=== PATIENT | female | born 1935 | race Caucasian/White ===

== ENCOUNTER 2018-09-25 10:30 | Emergency (ER) | payer MEDICARE, OTHER ==
[~2018-09-25] VITALS: Ht 154.9 cm; Wt 64.4 kg
[~2018-09-25 10:30] MED LIST: ALBU90OI6 INH; ALBU90OI61 INH; AMLO10 PO; AMLO5 PO; ASCO500 PO; ASPI81CH PO; ASPI81EC PO; CHOL10002; DHA; DIAZ2 PO; FERR325 PO; FOLI1 PO; FUROSEMIDE; GUAI600T33 PO; HYDCHL25 PO; HYDCHL50 PO; Hydrochlorothia25 MG PO; IRON160 M1 PO; Keflex500 MG PO; LISI20 PO; MECL25 PO; METO50 PO; MULVITMIND PO; MULVITMINE PO; Norvasc2.5 MG PO; OLME20 PO; OMEP20ER; OMEP20ER PO; PANT40 PO; POTA8 PO; PRENATAL; PROAIR RESPICL90 MCG IH; SIMV10 PO; TORS10 PO; Zofran4 MG PO
[2018-09-25 11:07] LABS: Source, Urine Clean Catch
[2018-09-25 11:09] LABS: BASOPHILS ABSOLUTE AUTO 0.01 K/mm3 (0.00-0.23); BASOPHILS PERCENT AUTO 0 % (0-2); EOSINOPHILS ABSOLUTE AUTO 0.12 K/mm3 (0.00-0.68); EOSINOPHILS PERCENT AUTO 1 % (0-6); Hematocrit 39.3 % (33.0-51.0); Hemoglobin 12.1 g/dL (11.5-16.0); IMMATURE GRAN ABSOLUTE AUTO 0.04 K/mm3 (0.00-0.10); IMMATURE GRAN PERCENT AUTO 0 % (0-1); LYMPHOCYTES ABSOLUTE AUTO 0.87 K/mm3 (0.84-5.20); LYMPHOCYTES PERCENT AUTO 8 % (21-46); MONOCYTES PERCENT AUTO 4 % (4-13); Mean Corpuscular HGB 28.9 pg (26.0-34.0); Mean Corpuscular HGB Conc 30.8 g/dL (31.5-36.5); Mean Corpuscular Volume 94 fL (80-100); Mean Platelet Volume 11.2 fL (9.1-12.4); NEUTROPHILS ABSOLUTE AUTO 9.57 K/mm3 (1.96-9.15); NEUTROPHILS PERCENT AUTO 87 % (41-73); Platelet Count 206 K/mm3 (150-400); RDW Coefficient Variation 13.2 % (11.7-14.2); RDW Standard Deviation 45.3 fL (35.1-46.3); Red Blood Cell Count 4.19 M/mm3 (3.80-5.20); White Blood Cell Count 11.01 K/mm3 (4.00-11.30)
[2018-09-25 11:16] LABS: Bilirubin, Urine Neg (Neg); Blood, Urine 2+ (Neg); Glucose Qualitative, Urine Neg (Neg); Ketones, Urine 1+ (Neg); Leukocyte Esterase, Urine 2+ (Neg); Nitrite, Urine Neg (Neg); Protein, Urine 2+ (Neg); Urobilinogen, Urine NORM (Normal)
[2018-09-25 11:44] LABS: Albumin, Blood 3.5 g/dL (3.4-5.0); Albumin/Globulin Ratio 1.1 (0.8-1.8); Bilirubin, Total 0.8 mg/dL (0.1-1.0); Bun/Creatinine Ratio 19.3 (12.0-20.0); Calcium, Blood 7.4 mg/dL (8.5-10.1); Creatinine, Blood 1.35 mg/dL (0.40-1.00); Globulin, Blood 3.3 g/dL (2.2-4.0); Potassium, Blood 4.1 mmol/L (3.5-5.5); Total Protein, Blood 6.8 g/dL (6.4-8.2)
[2018-09-25 11:45] LABS: Appearance, Urine Hazy (Clear); Bacteria Rare /hpf; Color, Urine Yellow (P-Yellow); Mucus Light (0-Heavy); Red Blood Cells, Urine 0-2 /hpf (0-2); Squamous Epithelial Cells Few /hpf (Few)
== END 2018-09-25 13:58 | disposition home or self-care (01) ==
LOC: ER 10:30
PROVIDERS: Emergency Medicine
DX: R19.7 Diarrhea, unspecified (principal); Z88.8 Allergy status to other drugs, medicaments and biological substances; Z88.5 Allergy status to narcotic agent; Z79.899 Other long term (current) drug therapy; I10 Essential (primary) hypertension; K21.9 Gastro-esophageal reflux disease without esophagitis
CPT/HCPCS: 36415; 80053; 81001; 83690; 85025; 87086; 96360; 96361; 99284-25; J7120

== ENCOUNTER 2022-07-04 12:26 | Emergency (ER) | payer MEDICARE, OTHER ==
[~2022-07-04] VITALS: Ht 157.5 cm; Wt 61.2 kg
[2022-07-04] MEDS ORDERED: OCEAN104 ML (14:10)
== END 2022-07-04 14:30 | disposition home or self-care (01) ==
LOC: ER 12:26
DX: R04.0 Epistaxis (principal); I10 Essential (primary) hypertension; K21.9 Gastro-esophageal reflux disease without esophagitis; Z95.2 Presence of prosthetic heart valve; Z95.1 Presence of aortocoronary bypass graft; Z79.01 Long term (current) use of anticoagulants; Z79.899 Other long term (current) drug therapy; Z88.8 Allergy status to other drugs, medicaments and biological substances; Z88.5 Allergy status to narcotic agent
CPT/HCPCS: A9270

== ENCOUNTER 2022-08-23 09:04 | Inpatient (IN) | payer MEDICARE, OTHER ==
[~2022-08-23] VITALS: Ht 157.5 cm; Wt 67.4 kg
[~2022-08-23 09:04] MED LIST changes: +OCEAN104 ML
[2022-08-23 10:20] LABS: BASOPHILS ABSOLUTE AUTO 0.02 K/mm3 (0.00-0.23); BASOPHILS PERCENT AUTO 0 % (0-2); EOSINOPHILS ABSOLUTE AUTO 0.01 K/mm3 (0.00-0.68); EOSINOPHILS PERCENT AUTO 0 % (0-6); Hematocrit 46.4 % (33.0-51.0); Hemoglobin 15.4 g/dL (11.5-16.0); IMMATURE GRAN ABSOLUTE AUTO 0.07 K/mm3 (0.00-0.10); IMMATURE GRAN PERCENT AUTO 1 % (0-1); LYMPHOCYTES ABSOLUTE AUTO 0.89 K/mm3 (0.84-5.20); LYMPHOCYTES PERCENT AUTO 6 % (21-46); MONOCYTES ABSOLUTE AUTO 1.24 K/mm3 (0.16-1.47); MONOCYTES PERCENT AUTO 9 % (4-13); Mean Corpuscular HGB 28.6 pg (26.0-34.0); Mean Corpuscular HGB Conc 33.2 g/dL (31.5-36.5); Mean Corpuscular Volume 86 fL (80-100); Mean Platelet Volume 12.3 fL (9.1-12.4); NEUTROPHILS ABSOLUTE AUTO 11.82 K/mm3 (1.96-9.15); NEUTROPHILS PERCENT AUTO 84 % (41-73); NRBC ABSOLUTE 0.04 K/mm3 (0.00-0.02); NRBC Auto 0.3 /100 WBC (0.0-0.2); Platelet Count 140 K/mm3 (150-400); RDW Coefficient Variation 14.9 % (11.7-14.2); RDW Standard Deviation 46.5 fL (35.1-46.3); Red Blood Cell Count 5.38 M/mm3 (3.80-5.20); White Blood Cell Count 14.05 K/mm3 (4.00-11.30)
[2022-08-23 10:36] LABS: Bun/Creatinine Ratio 28.9 (12.0-20.0); Calcium, Blood 8.5 mg/dL (8.5-10.1); Creatinine, Blood 2.39 mg/dL (0.40-1.00); Magnesium, Blood 2.8 mg/dL (1.6-2.4); Potassium, Blood 5.5 mmol/L (3.5-5.5)
[2022-08-23] MEDS ORDERED: AMLO5 PO (12:25)
[2022-08-23] MEDS ORDERED: ELIQUIS2.5 MG PO (12:26)
[2022-08-23] MEDS ORDERED: CATAPRES-TTS 21 EAC1 TOP (12:27)
[2022-08-23] MEDS ORDERED: OLME20 PO (12:27)
[2022-08-23] MEDS ORDERED: KAPSPARGO SPRIN25 MG PO (12:28)
[2022-08-23] MEDS ORDERED: HYDCHL25 PO (12:28)
--- NOTE | 2022-08-23 13:57 | NUR ---
PT ADMITTED TO ICU 5 FROM ER. PT IS DROWSY BUT ORIENTED X4. DENIES CP OR PRESSURE, DENIES N/V AND SOB AT THE MOMENT. SKIN IS COOL T/O. FINGERS ARE DUSKY AND COLD. FEET ARE EVEN MORE DUSKY AND COLD, CAP REFILL 4 SEC. PT STATES SHE FEELS COLD AND DOES NOT USUALLY NOTICE HER HANDS OR FEET BEING ABNORMALLY COLD. AFIB 60'S -70'S ON THE MONITOR WITH STABLE BP. ATTEMPTED TO CALL SON PER PT REQUEST TO UPDATE, NO ANSWER.
[2022-08-23] MEDS ORDERED: FOLI1 PO (17:02)
[2022-08-23] MEDS ORDERED: THERA-D2000 UNIT PO (17:04)
[2022-08-23] MEDS ORDERED: ASCO500 PO (17:04)
[2022-08-23] MEDS ORDERED: B-12500 MC2 PO (17:05)
[2022-08-23] MEDS ORDERED: Ventolin/Prove6.7 GM INH (17:07)
--- NOTE | 2022-08-23 17:38 | NUR ---
PT RESTING IN BED. DENIES CP OR PRESSURE. GAVE DOSE OF LASIX PER DR. LOVE. DR. LOVE LOOKED IN TO POSSIBLE ALLERGY TO LASIX AND DETERMINED IT WAS OK TO GIVE DOSE. PT STILL COLD T/O WITH DUSKY FINGERS AND EVEN DUSKIER TOES. AFIB ON THE MONITOR WITH CONTROLLED RATE AND BP STABLE SINCE ADMIT. METOPROLOL TO BE STARTED TONIGHT. TROPONIN TRENDING DOWN. POWERGLIDE ATTEMPTED BUT PT HAS POOR VEINS AND WAS UNSUCCESSFUL. PT DOES HAVE ONE 20G TO LAC. SPOKE WITH SON PER PT REQUEST AND UPDATED. NO SIGN OF DISTRESS AT THE MOMENT.
--- NOTE | 2022-08-23 19:00 | NUR ---
ASSUMED CARE ASSUMED CARE OF PATIENT. RESTING QUIETLY WHEN UNDISTURBED. ROUSES EASILY TO VERBAL STIMULI. MONITOR SHOWS AFIB, RATE 70s. BP STABLE. RA SATS STABLE. RESPIRATIONS EVEN AND UNLABORED. SEE SHIFT ASSESSMENT FOR FULL ASSESSMENT.
[2022-08-24 03:24] LABS: BASOPHILS ABSOLUTE AUTO 0.02 K/mm3 (0.00-0.23); BASOPHILS PERCENT AUTO 0 % (0-2); EOSINOPHILS ABSOLUTE AUTO 0.03 K/mm3 (0.00-0.68); EOSINOPHILS PERCENT AUTO 0 % (0-6); Hematocrit 44.8 % (33.0-51.0); Hemoglobin 14.9 g/dL (11.5-16.0); IMMATURE GRAN ABSOLUTE AUTO 0.07 K/mm3 (0.00-0.10); IMMATURE GRAN PERCENT AUTO 1 % (0-1); LYMPHOCYTES ABSOLUTE AUTO 1.39 K/mm3 (0.84-5.20); LYMPHOCYTES PERCENT AUTO 9 % (21-46); MONOCYTES ABSOLUTE AUTO 1.43 K/mm3 (0.16-1.47); MONOCYTES PERCENT AUTO 9 % (4-13); Mean Corpuscular HGB 28.7 pg (26.0-34.0); Mean Corpuscular HGB Conc 33.3 g/dL (31.5-36.5); Mean Corpuscular Volume 86 fL (80-100); Mean Platelet Volume 12.3 fL (9.1-12.4); NEUTROPHILS ABSOLUTE AUTO 12.56 K/mm3 (1.96-9.15); NEUTROPHILS PERCENT AUTO 81 % (41-73); NRBC ABSOLUTE 0.06 K/mm3 (0.00-0.02); NRBC Auto 0.4 /100 WBC (0.0-0.2); Platelet Count 111 K/mm3 (150-400); RDW Coefficient Variation 14.8 % (11.7-14.2); RDW Standard Deviation 46.5 fL (35.1-46.3); Red Blood Cell Count 5.19 M/mm3 (3.80-5.20)
[2022-08-24 03:37] LABS: Albumin, Blood 2.7 g/dL (3.4-5.0); Albumin/Globulin Ratio 1.1 (0.8-1.8); Bun/Creatinine Ratio 30.7 (12.0-20.0); Creatinine, Blood 2.41 mg/dL (0.40-1.00); Globulin, Blood 2.5 g/dL (2.2-4.0); Magnesium, Blood 2.7 mg/dL (1.6-2.4); Potassium, Blood 5.2 mmol/L (3.5-5.5); Total Protein, Blood 5.2 g/dL (6.4-8.2)
--- NOTE | 2022-08-24 06:30 | NUR ---
SHIFT SUMMARY NO ACUTE CHANGES DURING NOC. PT SLEPT WHEN UNDISTURBED. DENIED PAIN/DISCOMFORT. UP TO BSC WITH STANDBY ASSIST. VOIDED WITHOUT DIFFICULTY. VSS T/O NOC. MONITOR SHOWED AFIB WITH OCCASIONAL NSR, RATE 70s. RA SATS STABLE.
--- NOTE | 2022-08-24 12:40 | NUR ---
PT A/O X4. DENIES PAIN, N/V, AND SOB. DR. COUCH BY TO SEE PT THIS AM AND RECOMMENDS MEDICAL MANAGEMENT. PT HAS BEEN UP TO BSC WITH MINIMAL 1 PERSON ASSIST. SAT UP IN CHAIR FOR MEALS. UNEVENTFUL MORNING. STATUS CHANGED TO MEDICAL WITH TELE. TRANSFERING TO ROOM 329, REPORT GIVEN TO TIN BAEZ.
--- NOTE | 2022-08-24 19:24 | NUR ---
SHIFT SUMMARY PT A&OX1-2 AND PLEASANT. PT IS COMPULSIVE SO BED ALARM IN ON. PT CONTINENT/INCONTINENT. BLOOD PRESSURE WAS SOFT THIS AFTERNOON, 90/56 AND HR PER CUSTOMER ADVISOR SPECIALIST WAS 115. DR LOVE NOTIFIED. ORDERS GIVEN. PT'S BP CONTINUED TO BE SOFT WHEN RECHECKED AND HR IN LOW 100'S. DR LOVE NOTIFIED AGAIN OF SOFT BP'S. METOPROLOL IV ORDERED PRN FOR HR GREATER THAN 120. REPORT GIVEN TO YIELD ANALYST NURSE.
--- NOTE | 2022-08-25 04:34 | NUR ---
SHIFT SUMMARY 87 YR F ADMITTED ON 08/23/22 FOR ABNORMAL HEART RYTHMS. TRANSFERED FROM ICU TO MEDICAL FLOOR YESTERDAY, 08/24/22. FULL CODE. PT IS SPONTANEOUS AND CONTINUOUSLY TRIES TO GET OUT OF BED WITHOUT ASSISTANCE OR USING THE CALL LIGHT. SHE APPEARS TO BE CONFUSED AND SAYS RANDOM THINGS. BP'S HAVE BEEN SOFT AND HOSPITALIST WAS CONTACTED TWICE, BOTH TIMES ORDERING A BOLUS OF NS. HR IS FLUCTUATING BETWEEN 70'S, 80'S, AND UP TO 150'S VERY BRIEFLY. PT IS AWAKE AND ALERT BUT ONLY ORIENTED TO SELF. SHE IS A VERY PLEASANT LADY BUT SHE DOES NOT FOLLOW DIRECTIONS ALTHOUGH SHE IS VERY BRIEFLY REDIRECTABLE.
--- NOTE | 2022-08-25 14:58 | NUR ---
CONACTED DR LOVE REGARDING BP 71/56, PT ASYMPTOMATIC. INFORMED MD TO LOOK AT CHART AND ENTER ORDERS. WILL CONTINUE TO MONITOR
[2022-08-25 16:30] LABS: Bun/Creatinine Ratio 34.2 (12.0-20.0); Creatinine, Blood 2.25 mg/dL (0.40-1.00); Potassium, Blood 4.2 mmol/L (3.5-5.5)
--- NOTE | 2022-08-25 17:37 | NUR ---
SHIFT SUMMARY NO ACUTE CHANGES DURING SHIFT. PT TRANSFERED BACK TO SCU FOR CLOSER OBSERVATION. PT ALERT TO SELF, CONTINUED CONFUSION. PT REMAINS ON RA, SBA, IMPULSIVE, BED/CHAIR ALARM ON. PT HYPOTENSIVE, 250 ML BOLUS GIVEN, SBP UP TO 86. WILL CONTINUE TO MONITOR. CALL LIGHT WITHIN REACH.
[2022-08-25 20:04] LABS: BASOPHILS ABSOLUTE AUTO 0.02 K/mm3 (0.00-0.23); BASOPHILS PERCENT AUTO 0 % (0-2); EOSINOPHILS PERCENT AUTO 1 % (0-6); Hematocrit 43.9 % (33.0-51.0); Hemoglobin 14.4 g/dL (11.5-16.0); IMMATURE GRAN ABSOLUTE AUTO 0.06 K/mm3 (0.00-0.10); IMMATURE GRAN PERCENT AUTO 1 % (0-1); LYMPHOCYTES ABSOLUTE AUTO 1.17 K/mm3 (0.84-5.20); LYMPHOCYTES PERCENT AUTO 9 % (21-46); MONOCYTES ABSOLUTE AUTO 1.08 K/mm3 (0.16-1.47); MONOCYTES PERCENT AUTO 8 % (4-13); Mean Corpuscular HGB 28.4 pg (26.0-34.0); Mean Corpuscular HGB Conc 32.8 g/dL (31.5-36.5); Mean Corpuscular Volume 87 fL (80-100); NEUTROPHILS ABSOLUTE AUTO 10.81 K/mm3 (1.96-9.15); NEUTROPHILS PERCENT AUTO 82 % (41-73); NRBC ABSOLUTE 0.06 K/mm3 (0.00-0.02); NRBC Auto 0.5 /100 WBC (0.0-0.2); Platelet Count 162 K/mm3 (150-400); RDW Coefficient Variation 14.7 % (11.7-14.2); RDW Standard Deviation 46.2 fL (35.1-46.3); Red Blood Cell Count 5.07 M/mm3 (3.80-5.20); White Blood Cell Count 13.24 K/mm3 (4.00-11.30)
[2022-08-25 20:07] LABS: Base Excess Venous -3.9 mmol/L; Bicarbonate Venous 21.8 mmol/L (24.0-30.0); PCO2 Venous 35.6 mmHg (38-42); pH Blood Venous 7.38 (7.34-7.37)
[2022-08-25 20:12] LABS: Source, Urine Straight Cath
[2022-08-25 20:20] LABS: Appearance, Urine Clear (Clear); Bilirubin, Urine Neg (Neg); Blood, Urine Neg (Neg); Color, Urine Yellow (P-Yellow); Glucose Qualitative, Urine Neg (Neg); Ketones, Urine Neg (Neg); Leukocyte Esterase, Urine Neg (Neg); Nitrite, Urine Neg (Neg); Protein, Urine Neg (Neg); Specific Gravity, Urine 1.015 (1.003-1.022); Urobilinogen, Urine NORM (Normal)
[2022-08-25 20:44] LABS: Creatinine, Urine Random 60.3 mg/dL (27.00-270.00)
[2022-08-25 21:00] LABS: U Amphetamine Screen Not Detected; U Barbituate Screen Not Detected; U Benzodiazapine Screen Not Detected; U Buprenorphine Screen Not Detected; U Cannabinoids Screen Not Detected; U Cocaine Screen Not Detected; U Methadone Screen Not Detected; U Methamphetamine Screen Not Detected; U Opiates Screen Not Detected; U Oxycodone Screen Not Detected; U Phencyclidine Screen Not Detected; U Propoxyphene Screen Not Detected
[2022-08-26 05:37] LABS: Bun/Creatinine Ratio 37.1 (12.0-20.0); Calcium, Blood 7.6 mg/dL (8.5-10.1); Creatinine, Blood 2.02 mg/dL (0.40-1.00); Magnesium, Blood 2.3 mg/dL (1.6-2.4)
--- NOTE | 2022-08-26 05:47 | NUR ---
SUMMARY: PT ORIENTED TO SELF AND FAMILY ONLY AND IS IMPULSIVE WHEN AWAKE W/FREQ ATTEMPTS OOB AND CHAIR BY SELF. SON WAS HERE AT BEGINNING OF SHIFT HELPING TO REORIENT AND DIRECT HER. SEROQUEL WAS RECIEVED AND PT AMBULATED W/FWW FROM ESPINAL RECLINER TO BED AND SHE'S BEEN SLEEPING W/O S/S DISTRESS SINCE. UA WAS OBTAINED AND SENT, NO UTI/TOX DETECTED. SHE'S INCONTINENT AT TIMES W/ATTENDS CHANGED PRN. PT REPOSITIONS SELF IN BED AND HAS CAMERA MONITORING IN PROGRESS W/ALARMS ON FOR FALL RISK. SHE'S BEEN AFIB ON TELEMETRY AT 90'S-100'S BPM, NO PRN METOPROLOL REQUIRED. BP'S REMAINS SOFT W/SBP 80'S-100'S BUT SHE'S BEEN ASYMPTOMATIC OF CARDIAC DISTRESS. NO ACUTE CHANGES, VSS/AFEBRILE. WCTM AND REPORT TO DAY RN.
--- NOTE | 2022-08-26 17:54 | NUR ---
SHIFT SUMMARY NO ACUTE CHANGES DURING SHIFT TODAY. PT ALERT TO SELF AND SON, REMAINS CONFUSED. PT REMAINS ON RA, X 1 ASSIST WITH FWW TO BATHROOM. BLOOD PRESSURE REMAINS LOW, MIDODRINE TID STARTED TODAY, SBP UP TO 90 THIS EVENING. WILL CONTINUE TO MONITOR. CALL LIGHT WITHIN REACH.
--- NOTE | 2022-08-27 05:25 | NUR ---
SHIFT SUMMARY PATIENT HAD NO ACUTE CHANGES. ALERT TO SELF AND SON WITH CONFUSION. HX OF SEVERE DEMENTIA. OUT OF BED ATTEMPTS X TWO ACTIVATING BED ALARM. ON CAMERA. SON PRESENT FOR A FEW HOURS FIRST PART OF SHIFT. ONE ASSIST TO BSC. PIV REMAINS INTACT. ON TELEMETRY AFIB W/RVR 100-115. DENIES PAIN, SOB, AND N/V. CALL LIGHT IN REACH. BED IN LOWEST POSITION AND ALARM ACTIVATED. WILL CONTINUE TO MONITOR UNTIL DAY SHIFT NURSE ASSUMES CARE.
--- NOTE | 2022-08-27 08:00 | NUR ---
PT PLEASANT COOP A/O X2, FAMILY AND SELF. DETAILS DIFFICULTY. SON AT BEDSIDE. ABLE TO TELL ME HAS 2 CHILDREN, GAVE ME BOTH NAMES. H/R IRREG, NO MURMUR NOTED. PER TELE STRIP, AFIB AT 107. LUNGS CLEAR, RESP EASY, UNLABORED. ON R.A. EDEMA +2-3 BLE. VOIDS 1 AST BSC. BT X4 LAST BM LAST NITE OR EARLY THIS AM. STATES NOT SURE. BED IN LOW POSITIOIN, CALL LITE IN REACH, BED ALARM ON FOR SAFETY
--- NOTE | 2022-08-27 11:47 | NUR ---
CALLED DR LOVE RE [facility]. MEGHANN D/C. DISCUSSED PARAMETERS ON LASIX. REQ HOLD TODAY DOSE. EXPECTS LIKELY TO D/C
--- NOTE | 2022-08-27 15:43 | NUR ---
MET WITH PT SONMARGA TO ANSWER QUESTIONS ABOUT WHAT COMFORT CARE. PROVIDED EDUATION, ANSWERED ALL QUESTIONS, AND PT SON BECOMES TEARFUL DURING OUR CONVERSATION. HE REPORTS THAT MORE FAMILY WILL BE ARRIVING IN A FEW DAYS AND HE WANTS TO WAIT TO MAKE A FINAL DECISION ABOUT CC AFTER THEY ARRIVE. PROVIDED EMOTIONAL SUPPORT AND ADVISED THAT PALLIATIVE CARE WILL CONTINUE TO FOLLOW UP AND HE IS APPRECIATIVE.
--- NOTE | 2022-08-27 18:58 | NUR ---
PT PLEASANT COOP FORGETFUL ALERT TO FAMILY AND SELF. PT FAMILY CONSIDERING HOSPICE AT DISCHARGE. MIDODRINE AND LASIX GIVEN TODAY. BP HAVE BEEN STABLE. DISCUSSED WITH NO PARAMETERS GIVEN TODAY FOR LASIX. NO NEW CONCERNS NOTED. BED IN LOW POSITION, CALL LITE IN REACH, CALLS APPROP
[2022-08-27 19:43] LABS: Calcium, Blood 8.6 mg/dL (8.5-10.1); Creatinine, Blood 1.81 mg/dL (0.40-1.00); Magnesium, Blood 2.6 mg/dL (1.6-2.4)
--- NOTE | 2022-08-28 05:12 | NUR ---
SHIFT SUMMARY 87 YR F ADMITTED ON 08/23/22 FOR AFIB W/ RVR. DNR. NO ACUTE CHANGES THIS SHIFT. PT IS STILL VERY CONFUSED AND IS NOT ORIENTED TO HER OWN ABILITY OR LACK THEREOF. SHE IS IMPULSIVE TO GET UP WITHOUT ASSISTANCE AND DOESN'T KNOW WHY SHE IS GETTING UP IN THE FIRST PLACE. SHE IS PLEASANT AND LAUGHS AT MOST THINGS SAID TO HER, IF SHE DOES NOT UNDERSTAND WHAT SHE IS BEING TOLD. HER SON WAS AT BEDSIDE AT BEGINNING OF SHIFT AND STATED THAT HE WILL BE BACK TOMORROW.
[2022-08-28 07:35] LABS: Magnesium, Blood 1.7 mg/dL (1.6-2.4)
--- NOTE | 2022-08-28 14:04 | NUR ---
PT RESTING COMF, SON AT THE BEDSIDE. PT IS PENDING DC TO [place] [employer], SON FEELS HIS MOTHER HAS BEEN IMPROVING AND WANTS TO HOLD OFF ON HOSPICE DISCUSSIONS AT THIS TIME. PALLIATIVE CARE WILL CONTINUE TO OFFER SUPPORT NEEDED.
[2022-08-28 17:08] LABS: Bun/Creatinine Ratio 44.4 (12.0-20.0); Calcium, Blood 8.4 mg/dL (8.5-10.1); Creatinine, Blood 1.69 mg/dL (0.40-1.00); Potassium, Blood 3.9 mmol/L (3.5-5.5)
--- NOTE | 2022-08-28 18:01 | NUR ---
PATIENT REFUSED TO TAKE LASIX AND SEROQUEL. PATIENT WAS ORDERED PRN SEROQUEL THIS EVENING After becoming aggitated and trying to get up to leave the room to go home. SON MARGA HERE NOW. PATIENT IS RESTING IN BED, MORE CALM BUT REFUSES TO TAKE ALL MEDICATION, INCLUDING LASIX. MIDODRINE WAS NOT NEEDED BP WAS HIGH.
--- NOTE | 2022-08-28 19:13 | NUR ---
PATIENT HAD A GOOD DAY, UP UNTIL EVENING TIME. DURING THE DAY, PATIENT WAS COOPERATIVE WITH CARE, DISPLAYING SAFE BEHAVIOR. AFTER 4PM, SHE BECAME AGGITATED, ATTEMPTING TO LEAVE HER ROOM TO "GO HOME" WITH AN UNSTEADY GAIT AND LOUD VOICE. PATIENT WOULD NOT REDIRECT WITH VERBAL. BOBBIN HANDLER STAYED WITH PATIENT FOR AT LEAST 30 MINUTES. ORDER OBTAINED FOR PO SEROQUEL, WHICH PATIENT REFUSED. SON MARGA WAS ALSO UNABLE TO CONVINCE PATIENT TO TAKE MEDICATION. PATIENT DECLINED LASIX WELL AT 1800, DUE TO WHAT APPEARED TO BE PARANOIA- "I DON'T WANT TO TAKE ANYTHING THAT YOUR TRYING TO KILL ME WITH". PATIENT DID LAY BACK DOWN IN BED ONCE HER SON MARGA WAS BACK AT BEDSIDE. NO DINNER WAS EATEN. AT THIS TIME, PATIENT IS STILL RESTING IN BED, EYES CLOSED.
--- NOTE | 2022-08-29 04:49 | NUR ---
SHIFT SUMMARY 87 YR F ADMITTED ON 08/23/22 FOR AFIB W/ RVR. DNR. NO ACUTE CHANGES THIS SHIFT. PT TOOK HER EVENING MEDS W/O RESISTANCE AND ALSO TOOK THE MEDS SHE HAD REFUSED EARLIER. SHE SLEPT FOR MOST OF THE SHIFT BUT DID HAVE SEVERAL EPISODES WHERE SHE APPEARED TO BE HAVING A CONVERSATION WITH SOMEONE WHO WAS NOT THERE. SHE DID NOT CALL TO USE THE RESTROOM SHE HAD DONE LAST NIGHT, BUT RATHER HAD EPISODES OF INCONTINENCE. SHE STILL APPEARS TO BE VERY CONFUSED BUT SHE WAS PLEASANT AND COOPERATIVE WITH CARE THIS SHIFT.
[2022-08-29 06:48] LABS: Albumin, Blood 2.5 g/dL (3.4-5.0); Anion Gap 8 mmol/L (6-16); Blood Urea Nitrogen 82 mg/dL (8-24); Bun/Creatinine Ratio 45.6 (12.0-20.0); CO2, Blood 24 mmol/L (21-32); Calcium, Blood 8.8 mg/dL (8.5-10.1); Chloride, Blood 108 mmol/L (98-108); Glomerular Filtration Rate 27 (60-); Glucose, Blood 105 mg/dL (70-99); Magnesium, Blood 2.5 mg/dL (1.6-2.4); Phosphorus, Blood 4.9 mg/dL (2.5-4.9); Sodium, Blood 140 mmol/L (136-145)
--- NOTE | 2022-08-29 17:18 | NUR ---
SHIFT SUMMARY PT AxOx2 WITH FREQUENT CONFUSION OR FORGETFULNESS. PT IS EASILY REDIRECTABLE. PT'S SON IN ROOM MOST OF THE DAY. TELE DC'D. PT HAD SHOWER TODAY. BED ALARM AND CAMERA ON FOR IMPULSIVITY. PT HAS BLE EDEMA AND NON PITTING IN BUE. EXTREMITIES ELEVATED PT TOLERATES. SKIN HAS SCATTERED BRUISING/MINOR ABRASIONS. OTHERWISE, C/D/I. PT UP IN CHAIR FOR MEALS AND PLEASANT AND COOPERATIVE WITH CARE. PT DENIES PAIN THIS SHIFT. PT IS CURRENTLY UP IN CHAIR WITH CALL LIGHT IN REACH. DENIES ANY NEEDS AT THIS TIME.
--- NOTE | 2022-08-30 04:51 | NUR ---
SHIFT SUMMARY ADMITTED FOR AFIB/NSTEMI. PLAN IS FOR PLACEMENT. SHE IS IMPULSIVE, BED ALARM IS SET. SHE IS REDIRECTABLE. 1 ASSIST W/FWW & GB - BRP. CARDIAC DIET. INCONTINENT. MEDS CRUSHED IN APPLESAUCE SHE CHEWS HER MEDS. ON ELIQUIS. [place]. SHE SLEPT THROUGHOUT SHIFT. NO NEW CONCERNS
--- NOTE | 2022-08-31 05:32 | NUR ---
SHIFT SUMMARY: PT IS ALERT AND ORIENTED WITH MINOR CONFUSION. PT IS CALM AND COOPERATIVE WITH CARE. PT IS A ONE PERSON ASSIST TO THE BATHROOM. PT INCONTINENT OVERNIGHT, CHANGED AND CLEANED NEEDED. PT DENIES PAIN, NAUSEA, VOMITING, AND SOB. PT SLEPT MUCH OF THE NIGHT WHEN NOT DISTURBED. NO ACUTE CHANGES OR COMPLICATION. WILL REPORT TO DAY NURSE.
--- NOTE | 2022-08-31 18:32 | NUR ---
EVENING NOTE PT RESTING QUIETLY. SON AT BEDSIDE. SCANT INTAKE FOOD OR FLUID. ATTEMPTED TO HELP HER EAT DINNER. SHE ATE 3 BITES AND DRANK 1/2 MILK. SON IS AWARE THAT SHE FADING. SHE DOESN'T RECOGNIZE HIM SHE CALLS HIM BY HER SONS NAME. VSS. UP TO BATHROOM WITH FWW/GAIT BELT. VOIDED AND INCONTINENT. PULL UP ON. SHE SPENDS MOST OF HER TIME SLEEPING. WHETHER SHE'S IN BED OR SITTING UP INTHE CHAIR. CONTINUE POC.
--- NOTE | 2022-09-01 06:29 | NUR ---
CONFUSED, PLEASANT, ORIENTED TO SELF, INADVERTENTLY HITS CALL LIGHT, AMBULATED ESPINAL WITH FWW AND SBA LAST NIGHT. INCONTINENT OF URINE LAST NIGHT BUT PER REPORT IS INTERMITTENTLY CONTINENT DURING THE DAY. TOLERATED PILLS WHOLE IN APPLESAUCE. VSS ON RA. FORGETFUL. UNEVENTFUL NIGHT. POTENTIAL DC TODAY.
[2022-09-01] MEDS ORDERED: ASPI81CH PO (10:48)
[2022-09-01] MEDS ORDERED: FAMO20 PO (10:54)
[2022-09-01] MEDS ORDERED: FURO20 PO (10:55)
[2022-09-01] MEDS ORDERED: Crestor20 MG PO (10:56)
--- NOTE | 2022-09-01 13:37 | NUR ---
Met with pt and son at bedside at the request of bedside RN. The pt is pleasant. She was notably SOB, so I spoke to son about measures we can provide to help with this. He became tearful, and states he has been trying to "keep her alive until my family comes". He states his and daughter will be arriving tomorrow night. We discussed comfort care, and with some education, son requested starting a modified version of it until family arrives, as long as pt's needs are met. Dr. Beatty gave v/o for comfort care; but we are starting slow, and will continue to re-evaluate for effectiveness of low dose roxanol.
--- NOTE | 2022-09-01 18:21 | NUR ---
SHIFT SUMMARY ALERT, ORIENTED TO SELF, FREQUENTLY CONFUSED AND AGITATED. SOB NOTED, LUNGS CLEAR/DIM BILATERLLY. PT DENIED PAIN T/O SHIFT. NO CP OR HEADACHE. PALLIATIVE CARE STARTED CC/ HOSPICE CONVERSATION, THOUGH PT'S SON MARGA IS WAITING FOR THE REST OF THE FAMILY TO BE HERE FOR THE FINAL DECISION. ROXANOL, ATROPINE DROPS, AND SEROQUEL ORDERED. PT NOTABLY AGITATED DURING THE END OF THE SHIFT, MEDICATED WITH SEROQUEL AND ROXANOL 5MG. UNABLE TO REDIRECT PATIENT T/O SHIFT. PT CURRENTLY SLEEPING WITH SON AT BEDSIDE. CALL LIGHT WITHIN REACH. NO ACUTE CHANGES DURING THIS SHIFT.
--- NOTE | 2022-09-02 04:29 | NUR ---
DISTRIBUTION SPEC SUMMARY NO ACUTE EVENTS THROUGHOUT THE NIGHT. A&OX2. PATIENT DOES NOT COMMUNICATE NEEDS APPROPRIATELY AND REQUIRES INCREASED ROUNDING. VSS. RR EVEN AND UNLABORED ON RA. NO SIGNS OR REPORTINGS OF PAIN THIS SHIFT. BED LOW AND LOCKED. CALL LIGHT WITHIN REACH. THIS RN WILL CONTINUE TO MONITOR. PATIENT APPEARS TO BE RESTING COMFORTABLY.
--- NOTE | 2022-09-02 11:55 | NUR ---
Met pt's son Carlos A in the waiting area on my way to see pt. A asked him how he was, and how he felt thigs were foin? He reponded, "Not great. My mom is restless, she seems tense and SOB". He asked for her to have a dose of roxanol, as he states, "It seems to really work for her choudhary she's like this". I told him I would assess as well as speak to the bedside RN. I reminded him to communicate with bedside RN if he has concerns about the pt, and he states he had forgotten. I did reassess pt, and spoke to bedside RN, who will continue assessing pt and medicate as needed for pain, anxiety or SOB.
--- NOTE | 2022-09-02 16:54 | NUR ---
SHIFT SUMMARY PATIENT CONFUSED, DISORIENTED, AND RESTLESS TODAY. 5MG ROXANOL GIVEN AT 1337, PATIENT HAS BEEN RESTING SINCE. REFUSED TO EAT ANY MEALS TODAY EXCEPT APPLESAUCE WITH MEDS. NOTED TO HAVE OCCASIONAL LABORED BREATHING. SOFT BP'S T/O DAY. PATIENT'S SON LEFT TO CLIENT SERVICES MANAGER FAMILY FROM [place] AND WILL BE BACK TONIGHT. PATIENT CURRENTLY SLEEPING COMFORTABLY WITH CALL LIGHT IN REACH.
--- NOTE | 2022-09-03 06:14 | NUR ---
AOX1, VSS ON RA, INDEPENDENT REPOSITIONING IN BED, PLEASANTLY CONFUSED, FOLLOWS DIRECTIONS FOR CARES. NO PRN MEDS GIVEN, PT CALM ALL NIGHT. DOES NOT CALL TO MAKE NEEDS KNOWN. MINIMAL INTAKE AND OUTPUT. INCONTINENT OF URINE. PURPOSEFUL ROUNDING MAINTAINED.
--- NOTE | 2022-09-03 10:31 | NUR ---
CALLED AND SPOKE TO PALLIATIVE CARE- PT PLACED ON CC MEDS WERE HELD YESTERDAY AND LAST NIGHT. UNCERTAIN IF MEDS SHOULD BE HELD AT THIS TIME OR NOT. HELD PER PALLIATIVE CARE RN.
[2022-09-03] MEDS ORDERED: ATROPINE SULFATE2 M1 SL (12:34)
[2022-09-03] MEDS ORDERED: MORP20L SL (12:35)
[2022-09-03] MEDS ORDERED: TRANSDERM-SCOP1 EA13 TD (12:36)
--- NOTE | 2022-09-03 14:23 | NUR ---
DISCHARGE NOTE- PT WAS DISCHARGED TO [facility]. PT WAS TAKEN VIA GURNEY TRANSPORT TO THE FACILITY FOR SAME DAY HOSPICE ADMISSION. PT WAS AWAKE AND RESPONSIVE WITH STAFF AT THE TIME OF DISCHARGE. PT HAS BEEN SLEEPING SOUNDLY FOR MOST OF THE DAY. ALL MEDS DC'D AT DISCHARGE. EXCEPT FOR HOSPICE MEDS. FAMILY PRESENT AT THE TIME OF TRANSPORT. NO S&S OF DISTRESS AT THE TIME OF TRANSPORT.
== END 2022-09-03 14:10 | disposition hospice, home (50) | DRG 280 ==
LOC: ER 09:04 → ICUW 12:22 → ICUE 12:22 → MEDS 12:22 → ICUE 13:45 → MEDS 08-24 12:55 → ENPENDDIS 09-02 16:45 → MEDS 09-03 14:10
PROVIDERS: Student in an Organized Health Care Education/Training Program; ADMIT Student in an Organized Health Care Education/Training Program
PROC: 5A2204Z Restoration of Cardiac Rhythm, Single (ICD-10-PCS; principal; 2022-08-23)
DX: I21.4 Non-ST elevation (NSTEMI) myocardial infarction (principal); I50.43 Acute on chronic combined systolic (congestive) and diastolic (congestive) heart failure; N17.9 Acute kidney failure, unspecified; I13.0 Hypertensive heart and chronic kidney disease with heart failure and stage 1 through stage 4 chronic kidney disease, or unspecified chronic kidney disease; F03.918 Unspecified dementia, unspecified severity, with other behavioral disturbance; N18.4 Chronic kidney disease, stage 4 (severe); I48.0 Paroxysmal atrial fibrillation; Z51.5 Encounter for palliative care; K21.9 Gastro-esophageal reflux disease without esophagitis; Z66 Do not resuscitate; I49.1 Atrial premature depolarization; K22.2 Esophageal obstruction; I27.20 Pulmonary hypertension, unspecified; I07.1 Rheumatic tricuspid insufficiency; M79.81 Nontraumatic hematoma of soft tissue; Z88.8 Allergy status to other drugs, medicaments and biological substances; Z95.2 Presence of prosthetic heart valve; Z88.5 Allergy status to narcotic agent; Z79.899 Other long term (current) drug therapy; Z87.19 Personal history of other diseases of the digestive system; Z98.890 Other specified postprocedural states; Z95.1 Presence of aortocoronary bypass graft; Z79.51 Long term (current) use of inhaled steroids; Z79.01 Long term (current) use of anticoagulants; Z98.49 Cataract extraction status, unspecified eye
CPT/HCPCS: 36415; 71045; 76770; 80048; 80053; 80069; 81003; 82570; 82803; 82947; 83690; 83735; 83880; 84443; 84484; 84540; 85025; 87040; 92960; 93005; 93010; 93971; 94760; 96374-59; 97129; 97130; 97165; 97530; 97535; 99152; 99285-25; A9270; C8929; J1940; J7030; J7050; Q9957